=== PATIENT | female | born 1930 | race Caucasian/White ===

== ENCOUNTER 2017-06-03 01:47 | Emergency (ER) | payer MEDICARE ==
[2017-06-03 02:49] LABS: BASOPHILS 0.1 % (0-2); EOSINOPHILS 0.2 % (0-7); HEMATOCRIT 42.3 % (36.0-48.0); HEMOGLOBIN 14.4 g/dL (12-16); IMMATURE GRANULOCYTES 0.4 % (0-5); LYMPHOCYTES 15.3 % (15-50); MCH 31.6 pg (26.0-34.0); MEAN PLATELET VOLUME 10.2 fL (7.4-10.4); MONOCYTES 5.3 % (2-11); NEUTROPHILS 78.7 % (40-80); PLATELET COUNT 290 10x3/uL (130-400); RBC 4.55 10x6/uL (4.00-5.40); RDW 13.3 % (11.5-14.5); WBC 14.1 10x3/uL (4.8-10.8)
[2017-06-03 02:58] LABS: APPEARANCE CLEAR (CLEAR); BILIRUBIN NEGATIVE (NEGATIVE); COLOR YELLOW (YELLOW); GLUCOSE 50 mg/dL (NEGATIVE); KETONE NEGATIVE (NEGATIVE); LEUKOCYTE ESTERASE NEGATIVE (NEGATIVE); NITRITE NEGATIVE (NEGATIVE); PROTEIN TRACE mg/dL (NEGATIVE); UROBILINOGEN NORMAL (NORMAL)
[2017-06-03 03:00] LABS: BACTERIA FEW /hpf (NONE SEEN); EPITHELIAL CELLS 0-5 /hpf (0-5); RED CELLS - URINE 0-5 /hpf (0-5); WHITE CELLS - URINE 0-5 /hpf (0-5)
[2017-06-03 03:07] LABS: ALBUMIN 3.2 g/dL (3.4-5.0); ALKALINE PHOSPHATASE 59 U/L (46-116); ALT (SGPT) 16 U/L (10-68); AMYLASE - SERUM 40 U/L (25-115); CALC OSMOLALITY 262 mosm/kg (275-300); CALCIUM 8.8 mg/dL (8.5-10.1); CARBON DIOXIDE 29.2 mmol/L (21.0-32.0); CHLORIDE - SERUM 93 mmol/L (98-107); CREATININE - SERUM 0.6 mg/dL (0.6-1.3); GLUCOSE 155 mg/dL (74-106); LIPASE 91 U/L (73-393); POTASSIUM - SERUM 3.8 mmol/L (3.5-5.1); PROTEIN - SERUM 6.6 g/dL (6.4-8.2); SODIUM 130 mmol/L (136-145); UREA NITROGEN 11 mg/dL (7-18); eGFR NON AFRICAN AMERICAN > 90 mL/min (90-120)
== END 2017-06-03 04:42 | disposition home or self-care (01) ==
LOC: D.ER 01:47
PROVIDERS: Family Medicine
DX: T40.4X5A Adverse effect of other synthetic narcotics, initial encounter (principal); Y92.019 Unspecified place in single-family (private) house as the place of occurrence of the external cause; I10 Essential (primary) hypertension; K21.9 Gastro-esophageal reflux disease without esophagitis

== ENCOUNTER → 2019-02-15 12:45 | Outpatient (CLI) | payer OTHER | END | disposition home or self-care (01) | LOC: D.HCCARDIO 12:45 | DX: I10 Essential (primary) hypertension (principal) ==

== ENCOUNTER 2020-02-04 19:30 | Inpatient (IN) | payer OTHER ==
[~2020-02-04] VITALS: Ht 162.6 cm; Wt 81.6 kg
[2020-02-04 19:49] VITALS: BP 184/72
[2020-02-04 20:01] LABS: BASOPHILS 0.5 % (0-2); EOSINOPHILS 4.5 % (0-7); HEMATOCRIT 46.7 % (36.0-48.0); IMMATURE GRANULOCYTES 0.5 % (0-5); LYMPHOCYTES 42.3 % (15-50); MCH 30.4 pg (26.0-34.0); MCHC 32.1 g/dL (31.0-37.0); MCV 94.5 fL (80.0-100.0); MEAN PLATELET VOLUME 9.4 fL (7.4-10.4); MONOCYTES 9.5 % (2-11); NEUTROPHILS 42.7 % (40-80); PLATELET COUNT 296 10x3/uL (130-400); RBC 4.94 10x6/uL (4.00-5.40); RDW 14.3 % (11.5-14.5); WBC 10.6 10x3/uL (4.8-10.8)
[2020-02-04 20:10] LABS: CALC OSMOLALITY 273 mosm/kg (275-300); CALCIUM 9.1 mg/dL (8.5-10.1); CARBON DIOXIDE 27.6 mmol/L (21.0-32.0); CHLORIDE - SERUM 102 mmol/L (98-107); GLUCOSE 119 mg/dL (74-106); SODIUM 135 mmol/L (136-145); UREA NITROGEN 21 mg/dL (7-18); eGFR NON AFRICAN AMERICAN 55 mL/min (90-120)
[2020-02-04 20:16] LABS: APTT 26.3 SECONDS (22.8-39.4); INR 0.88 (0.85-1.17); PROTIME 11.9 SECONDS (11.6-15.0)
[2020-02-04 20:27] LABS: ALBUMIN 3.5 g/dL (3.4-5.0); ALKALINE PHOSPHATASE 51 U/L (30-120); ALT (SGPT) 15 U/L (10-68); BILIRUBIN - TOTAL 0.35 mg/dL (0.2-1.3); CKMB 0.6 U/L (0.0-3.6); CREATINE KINASE 28 UL (21-215); MAGNESIUM - SERUM 2.1 mg/dL (1.8-2.4); THYROID STIMULATING HORMONE 1.64 uIU/mL (0.36-3.74)
[2020-02-04 20:30] LABS: TROPONIN-I < 0.017 ng/mL (0.000-0.060)
[2020-02-04 20:43] VITALS: BP 179/61
[2020-02-04 21:43] VITALS: BP 164/54
[2020-02-05] VITALS: BP 151/82
[2020-02-05] MEDS ORDERED: BENICAR HCT 201 EAC1 PO (00:17)
[2020-02-05] MEDS ORDERED: LEVOTHYROXINE150 MCG PO (00:18)
[2020-02-05] MEDS ORDERED: TOPROL XL50 MG PO (00:19)
[2020-02-05] MEDS ORDERED: PROTONIX40 MG PO (00:20)
[2020-02-05 03:04] VITALS: BMI 30.9
[2020-02-05 04:00] VITALS: BP 176/63
[2020-02-05 08:26] VITALS: BP 194/70
[2020-02-05 10:53] LABS: BASOPHILS 0.3 % (0-2); EOSINOPHILS 0.6 % (0-7); HEMATOCRIT 44.1 % (36.0-48.0); HEMOGLOBIN 14.3 g/dL (12-16); IMMATURE GRANULOCYTES 0.4 % (0-5); LYMPHOCYTES 21.8 % (15-50); MCH 30.1 pg (26.0-34.0); MCHC 32.4 g/dL (31.0-37.0); MCV 92.8 fL (80.0-100.0); MEAN PLATELET VOLUME 9.4 fL (7.4-10.4); MONOCYTES 8.5 % (2-11); NEUTROPHILS 68.4 % (40-80); PLATELET COUNT 299 10x3/uL (130-400); RBC 4.75 10x6/uL (4.00-5.40); RDW 13.8 % (11.5-14.5); WBC 12.1 10x3/uL (4.8-10.8)
[2020-02-05 11:11] LABS: ALBUMIN 3.3 g/dL (3.4-5.0); ALKALINE PHOSPHATASE 45 U/L (30-120); ALT (SGPT) 14 U/L (10-68); CALCIUM 9.1 mg/dL (8.5-10.1); CARBON DIOXIDE 28.2 mmol/L (21.0-32.0); CHLORIDE - SERUM 98 mmol/L (98-107); CKMB 0.8 U/L (0.0-3.6); CREATINE KINASE 34 UL (21-215); CREATININE - SERUM 0.9 mg/dL (0.6-1.3); GLUCOSE 120 mg/dL (74-106); PROTEIN - SERUM 6.8 g/dL (6.4-8.2); SODIUM 132 mmol/L (136-145); eGFR NON AFRICAN AMERICAN 62 mL/min (90-120)
[2020-02-05 11:12] LABS: CALC OSMOLALITY 266 mosm/kg (275-300); TROPONIN-I < 0.017 ng/mL (0.000-0.060); UREA NITROGEN 15 mg/dL (7-18)
[2020-02-05 13:09] VITALS: BP 170/54
[2020-02-05 16:05] VITALS: BP 165/64
[2020-02-05 16:29] LABS: CKMB 0.7 U/L (0.0-3.6); CREATINE KINASE 39 UL (21-215); TROPONIN-I < 0.017 ng/mL (0.000-0.060)
[2020-02-05 20:00] VITALS: BP 128/80
[2020-02-05 23:15] LABS: CKMB 0.8 U/L (0.0-3.6); CREATINE KINASE 52 UL (21-215); TROPONIN-I < 0.017 ng/mL (0.000-0.060)
[2020-02-06] VITALS: BP 166/86
[2020-02-06 04:00] VITALS: BP 189/79
[2020-02-06 04:45] LABS: BASOPHILS 0.4 % (0-2); EOSINOPHILS 2.5 % (0-7); HEMATOCRIT 42.6 % (36.0-48.0); HEMOGLOBIN 14.1 g/dL (12-16); IMMATURE GRANULOCYTES 0.4 % (0-5); LYMPHOCYTES 26.3 % (15-50); MCH 30.1 pg (26.0-34.0); MCHC 33.1 g/dL (31.0-37.0); MEAN PLATELET VOLUME 9.7 fL (7.4-10.4); MONOCYTES 9.1 % (2-11); NEUTROPHILS 61.3 % (40-80); PLATELET COUNT 302 10x3/uL (130-400); RBC 4.68 10x6/uL (4.00-5.40); RDW 13.4 % (11.5-14.5); WBC 10.2 10x3/uL (4.8-10.8)
[2020-02-06 05:05] LABS: ALBUMIN 3.2 g/dL (3.4-5.0); ANION GAP 9.2 mmol/L (8-16); BILIRUBIN - TOTAL 0.81 mg/dL (0.2-1.3); CALCIUM 8.6 mg/dL (8.5-10.1); CARBON DIOXIDE 26.8 mmol/L (21.0-32.0); CHOL - HDL RATIO 3.7 ratio (2.3-4.1); CREATININE - SERUM 0.8 mg/dL (0.6-1.3); LDL-HDL RATIO 2.5 ratio (1.5-3.5); PROTEIN - SERUM 6.6 g/dL (6.4-8.2)
[2020-02-06 08:53] VITALS: BP 185/64
[2020-02-06 12:13] VITALS: BP 172/55
[2020-02-06 12:41] VITALS: Ht 162.6 cm; Wt 81.6 kg
[2020-02-06 16:58] VITALS: BP 184/62
[2020-02-06 20:00] VITALS: BP 184/82
[2020-02-07] VITALS: BP 167/66
[2020-02-07 04:11] LABS: BASOPHILS 0.1 % (0-2); EOSINOPHILS 0.2 % (0-7); HEMATOCRIT 44.6 % (36.0-48.0); HEMOGLOBIN 15.2 g/dL (12-16); IMMATURE GRANULOCYTES 0.5 % (0-5); LYMPHOCYTES 21.6 % (15-50); MCH 29.9 pg (26.0-34.0); MCHC 34.1 g/dL (31.0-37.0); MEAN PLATELET VOLUME 10.3 fL (7.4-10.4); NEUTROPHILS 68.6 % (40-80); RBC 5.08 10x6/uL (4.00-5.40); RDW 12.8 % (11.5-14.5)
[2020-02-07 04:28] LABS: ALBUMIN 3.5 g/dL (3.4-5.0); ALKALINE PHOSPHATASE 48 U/L (30-120); ALT (SGPT) 14 U/L (10-68); CALCIUM 8.7 mg/dL (8.5-10.1); CARBON DIOXIDE 26.9 mmol/L (21.0-32.0); CREATININE - SERUM 0.6 mg/dL (0.6-1.3); GLUCOSE 112 mg/dL (74-106); MCV 87.8 fL (80.0-100.0); PLATELET COUNT 239 10x3/uL (130-400); POTASSIUM - SERUM 4.1 mmol/L (3.5-5.1); PROTEIN - SERUM 7.3 g/dL (6.4-8.2); UREA NITROGEN 8 mg/dL (7-18); WBC 14.7 10x3/uL (4.8-10.8); eGFR NON AFRICAN AMERICAN > 90 mL/min (90-120)
[2020-02-07 04:33] LABS: CALC OSMOLALITY 235 mosm/kg (275-300)
[2020-02-07 04:35] LABS: CHLORIDE - SERUM 83 mmol/L (98-107); SODIUM 117 mmol/L (136-145)
[2020-02-07 07:47] VITALS: BP 168/76
[2020-02-07 12:13] VITALS: BP 163/60
[2020-02-07 14:21] LABS: CALCIUM 8.6 mg/dL (8.5-10.1); CARBON DIOXIDE 24.8 mmol/L (21.0-32.0)
[2020-02-07 14:22] LABS: ANION GAP 15.2 mmol/L (8-16); CREATININE - SERUM 0.8 mg/dL (0.6-1.3)
[2020-02-07 16:14] VITALS: BP 165/63
[2020-02-07 17:36] LABS: CALCIUM 8.9 mg/dL (8.5-10.1); CARBON DIOXIDE 23.4 mmol/L (21.0-32.0); CREATININE - SERUM 0.7 mg/dL (0.6-1.3); GLUCOSE 97 mg/dL (74-106); UREA NITROGEN 11 mg/dL (7-18); eGFR NON AFRICAN AMERICAN 83 mL/min (90-120)
[2020-02-07 17:43] LABS: CALC OSMOLALITY 236 mosm/kg (275-300)
[2020-02-07 17:44] LABS: SODIUM 118 mmol/L (136-145)
[2020-02-07 17:45] LABS: CHLORIDE - SERUM 84 mmol/L (98-107)
[2020-02-07 21:48] LABS: CALCIUM 8.7 mg/dL (8.5-10.1); CARBON DIOXIDE 23.1 mmol/L (21.0-32.0); CREATININE - SERUM 0.8 mg/dL (0.6-1.3); POTASSIUM - SERUM 3.8 mmol/L (3.5-5.1)
[2020-02-07 21:55] VITALS: BP 155/75
[2020-02-07 21:55] LABS: ANION GAP 14.7 mmol/L (8-16)
[2020-02-08 00:55] VITALS: BP 145/62
[2020-02-08 02:29] LABS: CALCIUM 8.6 mg/dL (8.5-10.1); CARBON DIOXIDE 25.8 mmol/L (21.0-32.0); POTASSIUM - SERUM 3.6 mmol/L (3.5-5.1)
[2020-02-08 02:30] LABS: ANION GAP 11.8 mmol/L (8-16)
[2020-02-08 05:21] LABS: BASOPHILS 0.2 % (0-2); EOSINOPHILS 0.4 % (0-7); HEMATOCRIT 45.8 % (36.0-48.0); IMMATURE GRANULOCYTES 0.7 % (0-5); LYMPHOCYTES 23.4 % (15-50); MCH 30.5 pg (26.0-34.0); MCHC 34.9 g/dL (31.0-37.0); MCV 87.2 fL (80.0-100.0); MEAN PLATELET VOLUME 9.8 fL (7.4-10.4); MONOCYTES 14.4 % (2-11); NEUTROPHILS 60.9 % (40-80); RBC 5.25 10x6/uL (4.00-5.40); WBC 12.9 10x3/uL (4.8-10.8)
[2020-02-08 05:32] LABS: PLATELET COUNT 349 10x3/uL (130-400)
[2020-02-08 05:40] LABS: ALBUMIN 3.2 g/dL (3.4-5.0); BILIRUBIN - TOTAL 1.65 mg/dL (0.2-1.3); CALCIUM 8.7 mg/dL (8.5-10.1); CARBON DIOXIDE 25.3 mmol/L (21.0-32.0); CREATININE - SERUM 0.8 mg/dL (0.6-1.3); POTASSIUM - SERUM 3.4 mmol/L (3.5-5.1); PROTEIN - SERUM 6.7 g/dL (6.4-8.2)
[2020-02-08 05:55] LABS: ANION GAP 13.1 mmol/L (8-16)
[2020-02-08 06:50] VITALS: BP 129/53
[2020-02-08 08:55] VITALS: BP 146/59
[2020-02-08 09:42] LABS: CALCIUM 8.7 mg/dL (8.5-10.1); CARBON DIOXIDE 21.9 mmol/L (21.0-32.0); CREATININE - SERUM 0.8 mg/dL (0.6-1.3)
[2020-02-08 09:44] LABS: ANION GAP 16.2 mmol/L (8-16); POTASSIUM - SERUM 4.1 mmol/L (3.5-5.1)
[2020-02-08 13:36] LABS: ANION GAP 11.7 mmol/L (8-16); CALCIUM 8.8 mg/dL (8.5-10.1); CARBON DIOXIDE 26.1 mmol/L (21.0-32.0); CREATININE - SERUM 1.2 mg/dL (0.6-1.3); POTASSIUM - SERUM 3.8 mmol/L (3.5-5.1)
[2020-02-08 13:41] VITALS: BP 103/48
[2020-02-08 17:33] LABS: CALCIUM 8.5 mg/dL (8.5-10.1); CARBON DIOXIDE 21.4 mmol/L (21.0-32.0); POTASSIUM - SERUM 4.3 mmol/L (3.5-5.1)
[2020-02-08 17:42] LABS: ANION GAP 14.9 mmol/L (8-16)
[2020-02-08 18:29] VITALS: BP 146/56
[2020-02-08 21:49] VITALS: BP 137/60
[2020-02-08 22:14] LABS: CARBON DIOXIDE 23.4 mmol/L (21.0-32.0); CREATININE - SERUM 0.8 mg/dL (0.6-1.3); POTASSIUM - SERUM 3.9 mmol/L (3.5-5.1)
[2020-02-08 22:16] LABS: ANION GAP 12.5 mmol/L (8-16)
[2020-02-09 01:46] LABS: ANION GAP 8.2 mmol/L (8-16); CALCIUM 8.3 mg/dL (8.5-10.1); CARBON DIOXIDE 27.7 mmol/L (21.0-32.0); CREATININE - SERUM 0.9 mg/dL (0.6-1.3); POTASSIUM - SERUM 3.9 mmol/L (3.5-5.1)
[2020-02-09 01:49] VITALS: BP 122/71
[2020-02-09 04:33] LABS: BASOPHILS 0.2 % (0-2); EOSINOPHILS 1.2 % (0-7); HEMATOCRIT 43.1 % (36.0-48.0); HEMOGLOBIN 14.9 g/dL (12-16); IMMATURE GRANULOCYTES 0.9 % (0-5); LYMPHOCYTES 29.8 % (15-50); MCH 29.9 pg (26.0-34.0); MCHC 34.6 g/dL (31.0-37.0); MCV 86.4 fL (80.0-100.0); MEAN PLATELET VOLUME 9.5 fL (7.4-10.4); MONOCYTES 12.5 % (2-11); NEUTROPHILS 55.4 % (40-80); PLATELET COUNT 317 10x3/uL (130-400); RBC 4.99 10x6/uL (4.00-5.40); WBC 12.2 10x3/uL (4.8-10.8)
[2020-02-09 04:59] LABS: ALBUMIN 2.8 g/dL (3.4-5.0); BILIRUBIN - TOTAL 1.12 mg/dL (0.2-1.3); CALCIUM 8.2 mg/dL (8.5-10.1); CARBON DIOXIDE 23.4 mmol/L (21.0-32.0); CREATININE - SERUM 0.8 mg/dL (0.6-1.3); POTASSIUM - SERUM 3.6 mmol/L (3.5-5.1)
[2020-02-09 05:00] LABS: ANION GAP 14.2 mmol/L (8-16)
[2020-02-09 06:01] VITALS: BP 117/56
[2020-02-09 09:31] LABS: ANION GAP 9.4 mmol/L (8-16); CALCIUM 8.5 mg/dL (8.5-10.1); CARBON DIOXIDE 28.6 mmol/L (21.0-32.0); CREATININE - SERUM 0.9 mg/dL (0.6-1.3)
[2020-02-09 09:37] VITALS: BP 124/61
[2020-02-09 13:42] VITALS: BP 149/76
[2020-02-09 14:11] LABS: ANION GAP 12.4 mmol/L (8-16); CALCIUM 8.5 mg/dL (8.5-10.1); CARBON DIOXIDE 23.8 mmol/L (21.0-32.0); POTASSIUM - SERUM 4.2 mmol/L (3.5-5.1)
[2020-02-09 17:16] VITALS: BP 136/47
[2020-02-09 17:32] LABS: POTASSIUM - SERUM 4.1 mmol/L (3.5-5.1)
[2020-02-09 18:24] LABS: ANION GAP 12.6 mmol/L (8-16); CALCIUM 8.5 mg/dL (8.5-10.1); CARBON DIOXIDE 24.5 mmol/L (21.0-32.0); CREATININE - SERUM 0.8 mg/dL (0.6-1.3)
[2020-02-09 20:00] VITALS: BP 141/68
[2020-02-09 21:13] LABS: ANION GAP 8.6 mmol/L (8-16); CALCIUM 8.3 mg/dL (8.5-10.1); CARBON DIOXIDE 27.2 mmol/L (21.0-32.0); CREATININE - SERUM 0.9 mg/dL (0.6-1.3); POTASSIUM - SERUM 3.8 mmol/L (3.5-5.1)
[2020-02-10] VITALS: BP 154/64
[2020-02-10 01:25] LABS: ANION GAP 9.3 mmol/L (8-16); CALCIUM 8.2 mg/dL (8.5-10.1); CARBON DIOXIDE 27.6 mmol/L (21.0-32.0); CREATININE - SERUM 0.8 mg/dL (0.6-1.3); POTASSIUM - SERUM 3.9 mmol/L (3.5-5.1)
[2020-02-10 04:00] VITALS: BP 138/67
[2020-02-10 08:37] LABS: BASOPHILS 0.6 % (0-2); EOSINOPHILS 1.7 % (0-7); HEMATOCRIT 44.1 % (36.0-48.0); LYMPHOCYTES 26.6 % (15-50); MCH 30.2 pg (26.0-34.0); MEAN PLATELET VOLUME 9.6 fL (7.4-10.4); MONOCYTES 12.5 % (2-11); NEUTROPHILS 57.6 % (40-80); PLATELET COUNT 338 10x3/uL (130-400); RBC 4.97 10x6/uL (4.00-5.40); RDW 13.6 % (11.5-14.5); WBC 12.1 10x3/uL (4.8-10.8)
[2020-02-10 08:40] LABS: MCV 88.7 fL (80.0-100.0)
[2020-02-10 08:45] LABS: ALBUMIN 2.8 g/dL (3.4-5.0); ANION GAP 9.6 mmol/L (8-16); BILIRUBIN - TOTAL 0.83 mg/dL (0.2-1.3); CALCIUM 8.5 mg/dL (8.5-10.1); CREATININE - SERUM 0.8 mg/dL (0.6-1.3); POTASSIUM - SERUM 3.6 mmol/L (3.5-5.1); PROTEIN - SERUM 5.9 g/dL (6.4-8.2)
[2020-02-10 09:39] VITALS: BP 108/60
[2020-02-10 12:48] VITALS: BP 119/65
[2020-02-10 15:47] VITALS: BP 132/61
--- NOTE | 2020-02-10 16:08 | MORECARE ---
CASE MANAGEMENT DISCHARGE SUMMARY PATIENT: PAUL BRAVO UNIT: [id number] ADM DATE: 02/06/20 AGE: 89 : 30 SEX: F ROOM/BED: D.2202 AUTHOR: JIMMY,DOC PHYSICIAN: REFERRING PHYSICIAN: CY CAPUTO MD DATE OF SERVICE: 02/10/20 Discharge Plan Patient Name: PAUL BRAVO Facility: [facility]:[place] : 1930 Planned Disposition: Home Anticipated Discharge Date: Discharge Date: Expected LOS: Initial Reviewer: [email or web address] Initial Review Date: 02/10/2020 Generated: 02/10/20 5:08 pm Comments DCP- Discharge Planning Updated by [email or web address]: Karen Corona on 02/10/20 3:[address] Patient Name: PAUL BRAVO Admission Status: ER Accout number: [id number] Admission Date: 02-06-2020 : 1930 Admission Diagnosis: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 CM educated patient on the CM role and verbal consent given by patient to complete assessment. Patient lives at with her son (Octavio) and his . At discharge patient plans to return and feels this is a safe discharge. CM discussed availability of home health, rehab services, and medical equipment. Patient denied known discharge needs at this time. She states that she is independent with her care. States "I was walking a mile a day before I came up here." States her DIL is a nurse medical claims assistant and can help her with any needs. CM will continue to follow and will assist as needed with dc plans/needs. Key Carrier: Karen Corona DCP- Discharge Planning Updated by [email or web address]: Cyndie Douglas on 02/06/20 6:[address] LATE ENTRY - 02/05/20 STEVENS EXPLAINED AND SIGNED 02/05/20 @ 1810 DCPIA - Discharge Planning Initial Assessment Updated by [email or web address]: Karen Corona on 02/10/20 4:02 pm * Is the patient Alert and Oriented? Yes * How many steps to enter\\exit or inside your home? few/0 * PCP Dr. Medina * Pharmacy [facility] [address] * Preadmission Environment Home with Family * ADLs Independent * Equipment Walker * List name and contact numbers for known caregivers / representatives who currently or will assist patient after discharge: Octavio parekh - [phone] * Verbal permission to speak to the caregivers and representatives has been obtained from the patient. Yes * Community resources currently utilized None * Additional services required to return to the preadmission environment? No * Can the patient safely return to the preadmission environment? Yes * Has this patient been hospitalized within the prior 30 days at any hospital? No External Providers External Provider: [employer] Next Contact Date: Service Request Date: Service Type: Resolution: Reviewer: Comments: Coverage Notice Reviewer: [id number] - Cyndie Douglas Notice Issued Date-Time: 02/05/2020 18:10 Notice Type: Medicare Outpatient Observation Notice Notice Delivered To: Patient Relationship to Patient: Self Decal Cutter Name: Delivery Method: HAND - Hand Delivered Mary Ann Days: Prior Verbal Notification: Recipient Understood Notice: Yes Recipient Signature: Yes Med Rec Note Co-signed by Attending: Coverage Notice Comment: Patient Name: PAUL BRAVO Page [id number] at 1608 All edits/amendments must be made on the electronic document DICTATION DATE: 02/10/201607 LADLE POURER: MAKSIM 02/10/201607 RPT#: [id number] DC DATE: STATUS: ADM IN [facility] [address] [place] [address] END OF REPORT
[2020-02-10 20:00] VITALS: BP 108/64
[2020-02-11] VITALS: BP 110/68
[2020-02-11 04:00] VITALS: BP 115/70
[2020-02-11 06:26] LABS: BASOPHILS 0.4 % (0-2); EOSINOPHILS 2.6 % (0-7); HEMATOCRIT 43.7 % (36.0-48.0); HEMOGLOBIN 14.5 g/dL (12-16); IMMATURE GRANULOCYTES 1.1 % (0-5); LYMPHOCYTES 31.3 % (15-50); MCHC 33.2 g/dL (31.0-37.0); MCV 90.5 fL (80.0-100.0); MEAN PLATELET VOLUME 9.6 fL (7.4-10.4); MONOCYTES 10.9 % (2-11); NEUTROPHILS 53.7 % (40-80); PLATELET COUNT 332 10x3/uL (130-400); RBC 4.83 10x6/uL (4.00-5.40); RDW 14.1 % (11.5-14.5)
[2020-02-11 06:39] LABS: CALCIUM 8.4 mg/dL (8.5-10.1); CARBON DIOXIDE 25.1 mmol/L (21.0-32.0); CREATININE - SERUM 0.8 mg/dL (0.6-1.3); POTASSIUM - SERUM 4.1 mmol/L (3.5-5.1)
[2020-02-11 09:00] VITALS: BP 152/78
[2020-02-11 14:18] VITALS: BP 126/58
[2020-02-11 17:40] LABS: BILIRUBIN NEGATIVE (NEGATIVE); GLUCOSE NEGATIVE (NEGATIVE); KETONE NEGATIVE (NEGATIVE); NITRITE NEGATIVE (NEGATIVE); RED CELLS - URINE 25-50 /hpf (0-5); SPECIFIC GRAVITY 1.025 (1.005-1.020); UROBILINOGEN NORMAL (NORMAL)
[2020-02-11 17:41] LABS: BACTERIA MODERATE /hpf (NEGATIVE)
[2020-02-11 20:00] VITALS: BP 130/68
[2020-02-12] VITALS: BP 145/57
[2020-02-12 04:00] VITALS: BP 115/57
[2020-02-12 05:57] LABS: BASOPHILS 0.4 % (0-2); EOSINOPHILS 3.5 % (0-7); HEMATOCRIT 42.4 % (36.0-48.0); HEMOGLOBIN 13.9 g/dL (12-16); LYMPHOCYTES 27.6 % (15-50); MCH 29.6 pg (26.0-34.0); MCHC 32.8 g/dL (31.0-37.0); MCV 90.4 fL (80.0-100.0); MEAN PLATELET VOLUME 9.6 fL (7.4-10.4); MONOCYTES 9.3 % (2-11); NEUTROPHILS 58.2 % (40-80); PLATELET COUNT 319 10x3/uL (130-400); RBC 4.69 10x6/uL (4.00-5.40); RDW 14.1 % (11.5-14.5); WBC 11.4 10x3/uL (4.8-10.8)
[2020-02-12 06:40] LABS: ANION GAP 11.6 mmol/L (8-16); CALCIUM 8.7 mg/dL (8.5-10.1); CARBON DIOXIDE 27.1 mmol/L (21.0-32.0); CREATININE - SERUM 0.9 mg/dL (0.6-1.3); POTASSIUM - SERUM 4.7 mmol/L (3.5-5.1)
[2020-02-12 08:30] VITALS: BP 154/55
[2020-02-12 17:50] VITALS: BP 125/86
[2020-02-12 22:30] VITALS: BP 142/83
[2020-02-13 01:25] VITALS: BP 177/58
[2020-02-13 03:52] LABS: BASOPHILS 0.7 % (0-2); EOSINOPHILS 4.7 % (0-7); HEMATOCRIT 40.5 % (36.0-48.0); HEMOGLOBIN 13.5 g/dL (12-16); IMMATURE GRANULOCYTES 1.2 % (0-5); LYMPHOCYTES 32.7 % (15-50); MCH 30.3 pg (26.0-34.0); MCHC 33.3 g/dL (31.0-37.0); MEAN PLATELET VOLUME 9.4 fL (7.4-10.4); MONOCYTES 10.3 % (2-11); NEUTROPHILS 50.4 % (40-80); PLATELET COUNT 326 10x3/uL (130-400); RBC 4.45 10x6/uL (4.00-5.40); WBC 10.8 10x3/uL (4.8-10.8)
[2020-02-13 04:07] LABS: CALCIUM 8.5 mg/dL (8.5-10.1); CARBON DIOXIDE 26.2 mmol/L (21.0-32.0); CREATININE - SERUM 0.8 mg/dL (0.6-1.3); POTASSIUM - SERUM 4.2 mmol/L (3.5-5.1)
[2020-02-13 04:13] VITALS: BP 187/77
[2020-02-13 09:27] VITALS: BP 180/69
[2020-02-13] MEDS ORDERED: FLOMAX0.4 MG PO (11:15)
[2020-02-13] MEDS ORDERED: ASPIRIN81 MG PO (11:16)
[2020-02-13] MEDS ORDERED: FLORAJEN3 CAPS460 MG PO (11:16)
[2020-02-13] MEDS ORDERED: THERMOTABS 1 GM1 GM PO (11:16)
[2020-02-13] MEDS ORDERED: PLAVIX75 MG PO (11:16)
[2020-02-13] MEDS ORDERED: Levaquin PO (11:17)
--- NOTE | 2020-02-13 12:04 | MORECARE ---
CASE MANAGEMENT DISCHARGE SUMMARY PATIENT: PAUL BRAVO UNIT: [id number] ADM DATE: 02/06/20 AGE: 89 : 30 SEX: F ROOM/BED: D.2202 AUTHOR: LUZMARIA MARQUEZ PHYSICIAN: REFERRING PHYSICIAN: CY CAPUTO MD DATE OF SERVICE: 02/13/20 Discharge Plan Patient Name: PAUL BRAVO Facility: [facility]:[place] : 1930 Planned Disposition: Home Anticipated Discharge Date: Discharge Date: Expected LOS: Initial Reviewer: [email or web address] Initial Review Date: 02/10/2020 Generated: 02/13/20 1:04 pm Comments DCP- Discharge Planning Updated by [email or web address]: Marielena Kulkarni on 02/13/20 11:[address] patient to be discharged home today, her son will be her jukebox route driver home. IMM served and explained. Patient did not want or need home health. 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 CM educated patient on the CM role and verbal consent given by patient to complete assessment. Patient lives at with her son (Octavio) and his . At discharge patient plans to return and feels this is a safe discharge. CM discussed availability of home health, rehab services, and medical equipment. Patient denied known discharge needs at this time. She states that she is independent with her care. States "I was walking a mile a day before I came up here." States her DIL is a nurse diver assistant and can help her with any needs. CM will continue to follow and will assist as needed with dc plans/needs. Radiation Engineer: Karen Corona DCP- Discharge Planning Updated by [email or web address]: Cyndie Douglas on 02/06/20 6:[address] LATE ENTRY - 02/05/20 STEVENS EXPLAINED AND SIGNED 02/05/20 @ 1810 DCPIA - Discharge Planning Initial Assessment Updated by [email or web address]: Karen Corona on 02/10/20 4:02 pm * Is the patient Alert and Oriented? Yes * How many steps to enter\\exit or inside your home? few/0 * PCP Dr. Medina * Pharmacy [facility] [address] * Preadmission Environment Home with Family * ADLs Independent * Equipment Walker * List name and contact numbers for known caregivers / representatives who currently or will assist patient after discharge: Octavio Mcdermott - dlw - [phone] * Verbal permission to speak to the caregivers and representatives has been obtained from the patient. Yes * Community resources currently utilized None * Additional services required to return to the preadmission environment? No * Can the patient safely return to the preadmission environment? Yes * Has this patient been hospitalized within the prior 30 days at any hospital? No Coverage Notice Reviewer: [id number] - Cyndie Douglas Notice Issued Date-Time: 02/05/2020 18:10 Notice Type: Medicare Outpatient Observation Notice Notice Delivered To: Patient Relationship to Patient: Self Automation Operator Name: Delivery Method: HAND - Hand Delivered Mary Ann Days: Prior Verbal Notification: Recipient Understood Notice: Yes Recipient Signature: Yes Med Rec Note Co-signed by Attending: Coverage Notice Comment: Reviewer: [id number] - Marielena Kulkarni Notice Issued Date-Time: 02/13/2020 12:00 Notice Type: IM Discharge Notice Notice Delivered To: Patient Relationship to Patient: Automation Operator Name: Delivery Method: HAND - Hand Delivered Mary Ann Days: Prior Verbal Notification: Recipient Understood Notice: Yes Recipient Signature: Yes Med Rec Note Co-signed by Attending: Coverage Notice Comment: Last DP export: 02/10/20 3:08 p Patient Name: PAUL BRAVO Page [phone] at 1204 All edits/amendments must be made on the electronic document DICTATION DATE: 02/13/20 1204 AMMUNITION STORAGE SUPERINTENDENT: MAKSIM 02/13/20 1204 RPT#: [id number] DC DATE: STATUS: ADM IN [facility] [address] [place] [address] END OF REPORT
--- NOTE | 2020-02-14 09:45 | MORECARE ---
CASE MANAGEMENT DISCHARGE SUMMARY PATIENT: PAUL BRAVO UNIT: [id number] ADM DATE: 02/06/20 AGE: 89 : 30 SEX: F ROOM/BED: D.2202 AUTHOR: JIMMY,DOC PHYSICIAN: REFERRING PHYSICIAN: CY CAPUTO MD DATE OF SERVICE: 02/14/20 Discharge Plan Patient Name: PAUL BRAVO Facility: [facility]:[place] : 1930 Planned Disposition: Home Anticipated Discharge Date: Discharge Date: 02/13/2020 Expected LOS: 0 Initial Reviewer: [email or web address] Initial Review Date: 02/10/2020 Generated: 02/14/20 10:45 am Comments DCP- Discharge Planning Updated by [email or web address]: Marielena Kulkarni on 02/13/20 11:[address] patient to be discharged home today, her son will be her sweeper driver home. IMM served and explained. Patient did not want or need home health. 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 CM educated patient on the CM role and verbal consent given by patient to complete assessment. Patient lives at with her son (Octavio) and his . At discharge patient plans to return and feels this is a safe discharge. CM discussed availability of home health, rehab services, and medical equipment. Patient denied known discharge needs at this time. She states that she is independent with her care. States "I was walking a mile a day before I came up here." States her DIL is a nurse assistant food service director and can help her with any needs. CM will continue to follow and will assist as needed with dc plans/needs. Groover And Turner: Karen Corona DCP- Discharge Planning Updated by [id number]: Cyndie Douglas on 02/06/20 6:[address] LATE ENTRY - 02/05/20 STEVENS EXPLAINED AND SIGNED 02/05/20 @ 1810 DCPIA - Discharge Planning Initial Assessment Updated by [email or web address]: Karen Corona on 02/10/20 4:02 pm * Is the patient Alert and Oriented? Yes * How many steps to enter\\exit or inside your home? few/0 * PCP Dr. Medina * Pharmacy [facility] [address] * Preadmission Environment Home with Family * ADLs Independent * Equipment Walker * List name and contact numbers for known caregivers / representatives who currently or will assist patient after discharge: Octavio Mcdermott - dki - [phone] * Verbal permission to speak to the caregivers and representatives has been obtained from the patient. Yes * Community resources currently utilized None * Additional services required to return to the preadmission environment? No * Can the patient safely return to the preadmission environment? Yes * Has this patient been hospitalized within the prior 30 days at any hospital? No Coverage Notice Reviewer: [id number] - Cyndie Misael Notice Issued Date-Time: 02/05/2020 18:10 Notice Type: Medicare Outpatient Observation Notice Notice Delivered To: Patient Relationship to Patient: Self Stock Speculator Name: Delivery Method: HAND - Hand Delivered Mary Ann Days: Prior Verbal Notification: Recipient Understood Notice: Yes Recipient Signature: Yes Med Rec Note Co-signed by Attending: Coverage Notice Comment: Reviewer: [id number] - Marielena Kulkarni Notice Issued Date-Time: 02/13/2020 12:00 Notice Type: IM Discharge Notice Notice Delivered To: Patient Relationship to Patient: Stock Speculator Name: Delivery Method: HAND - Hand Delivered Mary Ann Days: Prior Verbal Notification: Recipient Understood Notice: Yes Recipient Signature: Yes Med Rec Note Co-signed by Attending: Coverage Notice Comment: Last DP export: 02/13/20 11:04 a Patient Name: PAUL BRAVO Page [phone] at 0945 All edits/amendments must be made on the electronic document DICTATION DATE: 02/14/20944 LABORATORY MECHANIC HELPER: MAKSIM 02/14/20944 RPT#: [id number] DC DATE:02/13/20 STATUS: DIS IN [facility] [address] [place] [address] END OF REPORT
== END 2020-02-13 12:47 | disposition home or self-care (01) | DRG 64 ==
LOC: D.ER 19:30 → D.MS 20:54 → OBSVTIME 20:54 → D.MS 02-06 19:15
PROVIDERS: Family Medicine; Internal Medicine Nephrology; ADMIT Family Medicine; ATTEND Family Medicine
DX: I63.542 Cerebral infarction due to unspecified occlusion or stenosis of left cerebellar artery (principal); G93.41 Metabolic encephalopathy; N17.9 Acute kidney failure, unspecified; E22.2 Syndrome of inappropriate secretion of antidiuretic hormone; I69.351 Hemiplegia and hemiparesis following cerebral infarction affecting right dominant side; E03.9 Hypothyroidism, unspecified; I10 Essential (primary) hypertension; K21.9 Gastro-esophageal reflux disease without esophagitis; M19.90 Unspecified osteoarthritis, unspecified site; R47.1 Dysarthria and anarthria